=== PATIENT | female | born 1930 | race Caucasian/White ===

== ENCOUNTER 2018-03-02 18:47 | Inpatient (IN) | payer OTHER, MEDICARE ==
--- NOTE | 2018-03-02 19:38 | PDOC ---
History of Present Illness - General Chief Complaint: Injury Stated Complaint: FALL Time Seen by Provider: 03/02/18 19:11 History Source: Patient Exam Limitations: No Limitations - History of Present Illness Initial Comments: 03/02/18 19:38 Ms. Lindsay is a 87 yo F with no pertinent past medical presents to the emergency department BIBA s/p mechanical fall today at 6:45 pm. The fall occurred on [address] nearby and she stated she was walking her dog when it became hyperexcited and pulled on the leash, causing the patient to fall backwards on dirt pavement. She landed on her lower back, but denies head trauma and loss of consciousness. She was unable to get up having 10/10 sharp pain in her right hip posterior and lateral portion. She denies the following: visual changes, headache, chest pain, SOB, abdominal pain, nausea, and vomiting. Pmhx: None Shx: None Meds: None. Multivitamin. Allergies: NKDA Social: smokes 1-2 cigarettes per day, no alcohol or substance abuse use. Past History - Past Medical History Allergies/Adverse Reactions: Allergies Allergy/AdvReac Type Severity Reaction Status Date / Time No Known Allergies Allergy Verified 03/02/18 19:10 Home Medications: Ambulatory Orders Multivitamin [Multiple Vitamins] 1 each PO DAILY 03/02/18 COPD: No DVT: No Thyroid Disease: Yes Other medical history: denies - Suicide/Smoking/Psychosocial Hx Smoking History: Current every day smoker Number of Cigarettes Smoked Daily: 3 Information on smoking cessation initiated: Yes 'Breaking Loose' booklet given: 03/02/18 Hx Alcohol Use: No Drug/Substance Use Hx: No Substance Use Type: None Review of Systems - Review of Systems Able to Perform ROS?: Yes Constitutional: No: Chills, Diaphoresis, Fever HEENTM: No: Blurred Vision, Recent change in vision, Nose Pain, Throat Pain, Mouth Pain Respiratory: No: Cough, Shortness of Breath Cardiac (ROS): No: Chest Pain, Palpitations ABD/GI: No: Constipated, Diarrhea, Rectal Bleeding, Tarry Stools : No: Burning, Dysuria, Hematuria Musculoskeletal: Yes: Back Pain, Joint Pain (right knee. right hip) Integumentary: No: Rash Neurological: No: Headache Psychiatric: No: Stressors Endocrine: No: Unexplained Weight Gain Hematologic/Lymphatic: No: Anemia *Physical Exam - Vital Signs Last Vital Signs Temp Pulse Resp BP Pulse Ox 98.7 F 75 19 146/63 97 03/02/18 19:08 03/02/18 19:08 03/02/18 19:08 03/02/18 19:08 03/02/18 19:08 - Physical Exam General Appearance: Yes: Nourished, Appropriately Dressed HEENT: positive: EOMI, RAFI Neck: negative: Lymphadenopathy (R), Lymphadenopathy (L) Respiratory/Chest: positive: Lungs Clear, Normal Breath Sounds Cardiovascular: positive: Regular Rhythm, Regular Rate, S1, S2, Systolic Murmur (grade 3) Gastrointestinal/Abdominal: positive: Normal Bowel Sounds. negative: Tender Extremity: positive: Other (externall rotated and shortened right leg. unable to internal rotate right leg). negative: Swelling, Calf Tenderness, Erythema Integumentary: positive: Normal Color, Dry, Warm Neurologic: positive: rn mds II-XII NML intact, Fully Oriented, Alert, Normal Mood/ Affect, Normal Response, Motor Strength 5/5 Medical Decision Making - Medical Decision Making 03/02/18 19:57 Ms. Lindsay is a 87 yo F with no pertinent past medical history presenting s/p mechanical fall landing on lateral and posterior right hip with PE showing external rotation with shortened right leg. Based on hx and PE, suspected hip fracture whether posterior displacement vs femoral neck fracture vs trochcanter fracture vs fossa fracture. Initial vitals: Initial Vital Signs Temp Pulse Resp BP Pulse Ox 98.7 F 75 19 146/63 97 03/02/18 19:08 03/02/18 19:08 03/02/18 19:08 03/02/18 19:08 03/02/18 19:08 Work up: Xrays ordered for following: pelvis, lumbo sacral, knee, chest. In addition, EKG , CBC, CMP, and T+S was ordered.
[2018-03-02 20:06] LABS: BASO % 0.7 % (0-2.0); EOS % 3.2 % (0-4.5); HEMATOCRIT 34.5 % (32.4-45.2); HEMOGLOBIN 11.9 GM/dL (10.7-15.3); LYMPH % 23.8 % (8-40); MCH 32.2 pg (25.7-33.7); MCHC 34.6 g/dl (32.0-36.0); MEAN CELL VOLUME 93.2 fl (80-96); MEAN PLT VOLUME 9.1 fl (7.5-11.1); MONO % 8.4 % (3.8-10.2); NEUT % 63.9 % (42.8-82.8); PLATELET COUNT 214 K/MM3 (134-434); RDW 13.5 % (11.6-15.6); WHITE BLOOD COUNT 8.2 K/mm3 (4.0-10.0)
[2018-03-02] MEDS ORDERED: morphine CARPU-JECT 2 MG/1 ML DISP.SYRIN IVPUSH ONE (20:51)
[2018-03-02 21:00] LABS: ALBUMIN 3.5 g/dl (3.4-5.0); ANION GAP 7 (8-16); BILIRUBIN,TOTAL 0.3 mg/dL (0.2-1.0); BLOOD UREA NITROGEN 12 mg/dL (7-18); CHLORIDE 105 mmol/L (98-107); CO2 29 mmol/L (21-32); CREATININE 0.8 mg/dL (0.55-1.02); GLUCOSE,RANDOM 110 mg/dL (74-106); POTASSIUM 4.4 mmol/L (3.5-5.1); SGOT/AST 11 U/L (15-37); SGPT/ALT 12 U/L (12-78); SODIUM 141 mmol/L (136-145); TOT PROT 7.1 g/dl (6.4-8.2)
[2018-03-02 21:01] LABS: ALK PHOS 59 U/L (45-117)
[2018-03-02] MEDS ORDERED: MORPHINE SULFATE 2 MG/ML VIAL ONE (21:11)
--- NOTE | 2018-03-02 21:31 | PDOC ---
Attending Attestation - Resident Resident Name: Jabari Partida - ED Attending Attestation I have performed the following: I have examined & evaluated the patient, The case was reviewed & discussed with the resident, I agree w/resident's findings & plan, Exceptions are as noted - HPI HPI: 03/03/18 00:05 HPI: The patient is an 87 year old female with a past medical history of thyroid disease who presents to the emergency department today BIBA s/p mechanical fall at approximately 6:45 pm today. The patient reports that she was walking her dog when it overpowered her strength on the leash and she fell backward onto her lower back and right hip. She states that she was unable to get up due to pain in her right hip, which she describes as a sharp pain, 10/10 in severity. Denies loss of consciousness, headache, chest pain, abdominal pain, shortness of breath, abdominal pain, visual changes, nausea, vomiting. Allergies: NKA Surgical history: thyroid lesions removed Social history: 3 cigarettes per day PCP: unknown - Physicial Exam PE: 03/03/18 00:04 PE: No acute distress, well appearing, moist mucus membranes, nl conjunctiva; + right lateral parietal abrasion vs dermatitis, nontender, no hematoma or bleeding. neck supple no midline C spine tenderness, unable to move RLE due to right hip pain. Lungs clear, RRR, abdomen soft NTND, warm and well perfused. SINHA x4, no focal neuro deficits. No peripheral edema. normal color for ethnicity. soft compartments, 2+ DP/radialis pulses. Cap refill <2 sec. RLE externally rotated/shortened. Proximal and distal strength 5/5, epic [facility] strength 5/5 - equal and symmetric. Plantar flexion and dorsiflexion 5/5. ROM limited 2/2 pain. Sensation grossly intact to light touch. No calf tenderness. Skin color normal color, warm and well perfused. 03/03/18 00:06 - Medical Decision Making 03/02/18 21:28 A portion of this note was documented by scribe services under my direction. I have reviewed the details of the note, within reason, and agree with the documentation with the following case summary and management plan written by me. Gold 87 YOF with no medical problems, presenting s/p mechanical fall while walking dog that got overexcited. Landed on lower back, ? right hip pain, 10/10 and unable to ambulate. No LOC or head trauma. No prodromal sx. DDx. hip/femur fx, pelvic fx. Contusion, sprain. Hematoma. Compression vertebral fx. plan for L spine XR, hip/femur/knee/ imaging. XR with comminuted IT/fem neck fracture on right, pain control with low dose opioids, and pt consents to regional block (Femoral nerve and fascia iliaca block) for pain control. Pre op labs ordered, understanding risks and benefits , documented. Neuro vascularly intact. Fascia iliaca block on right, pain control, Ortho cs with Dr. Mckeon/[facility]. Dispo: admit for operative management of hip fx 03/02/18 21:30 <Heidy Fournier - Last Filed: 03/03/18 03:04> Procedures - Additional Procedures Progress: 03/03/18 00:09 Procedure: right femoral nerve block Patient was identifed, using 2 criteria, time out performed After explanation of the risks benefits and alternatives [written] consent was obtained - including but not limited to failure of block, pain, swelling, nerve or vessel injury, bleeding, infection, paresthesias, paralysis, seizure, arrhythmia, cardiovascular collapse, disability, . Pre-procedure neurological exam findings: A neurologic exam was conducted including motor and sensory testing of the femoral nerve. There were no deficits. soft compartments. Procedural details: The patient was maintained on continuous cardiac and pulmonary monitoring throughout the procedure. Time out was performed before needle insertion. The area of injection was prepped with chlorhexidine. Sterile technique was observed using: [+] sterile gloves, [+] sterile ultrasound probe cover and/or tegaderm, [+] sterile drape A 20 gauge [quincke tip, ] needle, [3.5] mm in length, was used. Ultrasound guidance with real-time visualization of the needle tip was utilized throughout the procedure using an [[id number]] approach. Images were saved. Approximately 10 mL of [2] % lidocaine without epinephrine and 10 ml of 0.5% bupivicaine was injected near the nerve structure. Local anesthetic was gradually injected in small aliquots of 3-5 mL following negative aspiration. Patient tolerated the procedure with no significant complications including bleeding, pain or neurologic changes during the procedure. There were no signs of local anesthetic toxicity. Following the procedure, the blocked extremity was protected and positioned to prevent injury and was marked with provider initials and time of the block. 03/03/18 03:03 <Heidy Fournier - Last Filed: 03/03/18 03:04> Attestations - Attestations 03/03/18 00:17 Documentation prepared by Elisa Larose, acting as medical staffing coordinator for Heidy Fournier MD. <Elisa Larose - Last Filed: 03/03/18 00:17>
[2018-03-02] MEDS ORDERED: LIDOCAINE HCL 2% (20ML MULTI-DOSE VIAL) NR ONE (21:42)
--- NOTE | 2018-03-02 22:45 | PN ---
Progress Note (short form) - Note Progress Note: chart reviewed plan OR tomorrow if medically optimized will see pt in AM
--- NOTE | 2018-03-02 23:08 | HP ---
CHIEF COMPLAINT:s/p mechanical fall PCP: NONE, used to follow-up with Dr. Morales, but has not seen Dr. morales in several years and no longer is their patient HISTORY OF PRESENT ILLNESS: 87 yr old woman with no significant pmhx bibems s/p mechanical fall. She was walking her terrier (20lbs) when the dog got excited and pulled on the leash. she fell down on to her "bum" and stayed there. She wanted to try to stand but passer-by's told her not to move. she had a sharp pain in her right hip that was worse with movement. has been in her usual state of health. denies LOC and head trauma. denies chest pain, fevers, palpitations, lightheadedness and dizziness, no history of falls, visual changes, dizziness, lightheadedness. ER course was notable for: (1)consult ortho (2) xrays (3) Recent Travel: none PAST MEDICAL HISTORY: none, no previous diagnosis of HTN, DM, cancers PAST SURGICAL HISTORY: no previous surgical hx Social History: , lives alone with her dog. indpendent with ADLS. has neice and nephew who she keeps in touch with. Smoking: current everday smoker 1-2 cigarrettes a day Alcohol:never Drugs: never Family History: NC Allergies No Known Allergies Allergy (Verified 03/02/18 19:10) HOME MEDICATIONS: Home Medications Medication Instructions Recorded Multivitamin [Multiple Vitamins] 1 each PO DAILY 03/02/18 REVIEW OF SYSTEMS CONSTITUTIONAL: Absent: fever, chills, diaphoresis, generalized weakness, malaise, loss of appetite, weight change HEENT: Absent: rhinorrhea, nasal congestion, throat pain, throat swelling, difficulty swallowing, mouth swelling, ear pain, eye pain, visual changes CARDIOVASCULAR: Absent: chest pain, syncope, palpitations, irregular heart rate, lightheadedness , peripheral edema RESPIRATORY: Absent: cough, shortness of breath, dyspnea with exertion, orthopnea, wheezing, stridor, hemoptysis GASTROINTESTINAL: Absent: abdominal pain, abdominal distension, nausea, vomiting, diarrhea, constipation, melena, hematochezia GENITOURINARY: Absent: dysuria, frequency, urgency, hesitancy, hematuria, flank pain, genital pain MUSCULOSKELETAL: Absent: myalgia, arthralgia, joint swelling, back pain, neck pain SKIN: Absent: rash, itching, pallor HEMATOLOGIC/IMMUNOLOGIC: Absent: easy bleeding, easy bruising, lymphadenopathy, frequent infections ENDOCRINE: Absent: unexplained weight gain, unexplained weight loss, heat intolerance, cold intolerance NEUROLOGIC: Absent: headache, focal weakness or paresthesias, dizziness, unsteady gait, seizure, mental status changes, bladder or bowel incontinence PSYCHIATRIC: Absent: anxiety, depression, suicidal or homicidal ideation, hallucinations. PHYSICAL EXAMINATION Vital Signs - 24 hr 03/02/18 03/02/18 19:08 22:00 Temperature 98.7 F Pulse Rate 75 Pulse Rate [ 83 Left] Respiratory 19 16 Rate Blood Pressure 146/63 Blood Pressure 126/65 [Right Arm] O2 Sat by Pulse 97 94 L Oximetry (%) GENERAL: Awake, alert, and fully oriented, in no acute distress. HEAD: Normal with no signs of trauma. EYES: Pupils equal, round and reactive to light, extraocular movements intact, sclera anicteric, conjunctiva clear. No lid lag. EARS, NOSE, THROAT: Ears normal, nares patent, oropharynx clear without exudates. Moist mucous membranes. NECK: Normal range of motion, supple without lymphadenopathy, JVD, or masses. LUNGS: Breath sounds equal, clear to auscultation bilaterally. No wheezes, and no crackles. No accessory muscle use. HEART: Regular rate and rhythm, normal S1 and S2 with soft systolic murmur in RUSB, rub or gallop. ABDOMEN: Soft, nontender, not distended, normoactive bowel sounds, no guarding, no rebound, no masses. No hepatomegaly or splenomegaly. MUSCULOSKELETAL: Normal range of motion at all joints except for right hip due to pain. No bony deformities or tenderness. No CVA tenderness. UPPER EXTREMITIES: 2+ radial pulses, warm, well-perfused. No cyanosis. No clubbing. No peripheral edema.left posterior lower arm with excorations from fall, no active bleeding. LOWER EXTREMITIES: 2+ DP pulses, warm, well-perfused. No calf tenderness. No peripheral edema. right hip is externally rotated. sensation is intact throughout, able to dorsi and planter flex at ankle. NEUROLOGICAL: Cranial nerves II-XII intact. Normal speech. facial symmetry. sensation intact and equal b/l throughout. 5/5 handgrip/shoulder/elbow extension and flexion. DTR intact in ue. right hip with ttp. left hip wnl for strength, sensation and movement. PSYCHIATRIC: Cooperative. Good eye contact. Appropriate mood and affect. SKIN: Warm, dry, normal turgor, no rashes noted, normal capillary refill. Laboratory Results - last 24 hr 03/02/18 03/02/18 19:45 19:45 WBC 8.2 RBC 3.70 Hgb 11.9 Hct 34.5 MCV 93.2 MCH 32.2 MCHC 34.6 RDW 13.5 Plt Count 214 MPV 9.1 Absolute Neuts (auto) 5.2 Neutrophils % 63.9 Lymphocytes % 23.8 Monocytes % 8.4 Eosinophils % 3.2 Basophils % 0.7 Nucleated RBC % 0 Sodium 141 Potassium 4.4 Chloride 105 Carbon Dioxide 29 Anion Gap 7 L BUN 12 Creatinine 0.8 Creat Clearance w eGFR > 60 Random Glucose 110 H Calcium 9.0 Total Bilirubin 0.3 AST 11 L ALT 12 Alkaline Phosphatase 59 Total Protein 7.1 Albumin 3.5 ASSESSMENT/PLAN: 87 yr old man with no significant medical history bibems s/p mechanical fall. #Communuted right femoral fracture - ortho to take pt to the OR tomorrow - continuous bedrest until surgically cleared for PT - coags/type&creen completed in ED - pt received nerve block in the ED and it seems to be controlling the pain, may need to start IV morphine if nerve block is wanes, however pt had mild desaturation on morphine and required nasal cannula 2Lpm to maintin o2 >88% - await final read off all rays. #smoking cessation - nicotine patch 7mg TD - encourage smoking cessation DVT; lovanox qd diet - npo pending surgery, then vegetarian diet, pt does not eat meat. Code status: full code, HCP is her nephew, form signed and placed in chart. Visit type - Emergency Visit Emergency Visit: Yes ED Registration Date: 03/02/18 Care time: The patient presented to the Emergency Department on the above date and was hospitalized for further evaluation of their emergent condition. - New Patient This patient is new to me today: Yes Date on this admission: 03/02/18 - Critical Care Critical Care patient: No Hospitalist Screening - Colonoscopy Questionnaire Colonoscopy Questionnaire: Colonoscopy Questionnaire - Patient: 50 - 75 years old and never had a screening colonoscopy: Unknown History of colon or rectal polyps, or CA: Unknown History of IBD, Crohn's disease or UC: Unknown History of abdominal radiation therapy as a child: Unknown - Relative: 1 with colon or rectal CA, or polyps at age 60 or younger: Unknown Colon or rectal CA diagnosed at age 45 or younger: Unknown Multiple relatives with colon or rectal CA: Unknown - Outcome: Screening Result: Negative Screen
[2018-03-02] MEDS ORDERED: ENOXAPARIN NA (PORCINE) 40 MG/0.4 ML DISP.SYRIN SQ ONE (23:31)
--- NOTE | 2018-03-02 23:32 | PN ---
Teaching Attending Note Name of Resident: Yaquelin Acuña ATTENDING PHYSICIAN STATEMENT I saw and evaluated the patient. I reviewed the resident's note and discussed the case with the resident. I agree with the resident's findings and plan as documented. SUBJECTIVE: Patient is an 87 year old woman with history of thyroid disease who presents to the ER after a mechanical fall today at 6:45 pm. The fall occurred on [address] [place] and she stated she was walking her dog when it became hyperexcited and pulled on the leash, causing the patient to fall backwards on dirt pavement. She landed on her lower back, but denies head trauma and loss of consciousness. She was unable to get up having 10/10 sharp pain in her right hip posterior and lateral portion. She denies the following: visual changes, headache, chest pain, SOB, abdominal pain, nausea, and vomiting. She is a smoker. Does not eat meat - only fruits and vegetables. Was started on O2 nasal canula because of mild desaturation after morphine therapy. OBJECTIVE: Alert and in no acute distress. Vital Signs Period Temp Pulse Resp BP Sys/Graves Pulse Ox Last 24 Hr 98.7 F 75-83 16-19 126-146/63-65 94-97 HEENT: No Jaundice, eye redness or discharge, PERRLA, EOMI. Normocephalic, atraumatic. External ears are normal and hearing is impaired. No nasal discharge. Neck: Supple, nontender. No palpable adenopathy or thyromegaly. No JVD Chest: Good effort. Clear to auscultation and percussion. Heart: Regular. No S3, rub or murmur Abdomen: Not distended, soft, nontender and no HSM. No rebound or guarding. Normoactive bowel sounds. Ext: Peripheral pulses intact. No leg edema. Externally rotated right leg which is also shorter than the left leg. Skin: Warm and dry. No petechiae, rash or ecchymosis. Neuro: Alert. Oriented x3. CN 2-12 grossly intact. Sensation grossly intact in all four extremities and DTR are symmetric. Current Medications Generic Name Dose Route Start Last Admin Trade Name Freq PRN Reason Stop Dose Admin Enoxaparin Sodium 40 mg 03/02/18 22:00 Lovenox - SQ DAILY AIDEE Multivitamins/Minerals/Vitamin C 1 tab 03/03/18 10:00 Tab-A-Vit - PO DAILY [facility] Home Medications Medication Instructions Recorded Multivitamin [Multiple Vitamins] 1 each PO DAILY 03/02/18 Abnormal Lab Results 03/02/18 19:45 Anion Gap 7 L Random Glucose 110 H AST 11 L ASSESSMENT AND PLAN: 1. Right Femoral Neck Fracture - Had a mechanical fall. Patient being kept NPO for possible surgery tomorrow. Morphine IV for pain control. Check TSH for history of thyroid disease. 2. Tobacco Use We will provide patient all the necessary assistance to facilitate smoking cessation and prescribe Nicotine patch. 3. DVT prophylaxis - Lovenox 40 mg SQ q 24 hours. 4. Advance directives - Full code
[2018-03-02] MEDS: ENOXAPARIN NA (PORCINE) 40 MG/0.4 ML DISP.SYRIN SQ SCH (23:35)
[2018-03-03 00:56] LABS: INR 1.03 (0.83-1.09); PROTHROMBIN TIME (PATIENT) 11.6 SEC (9.7-13.0)
[2018-03-03 00:59] LABS: ACTIVATED PTT 31.5 SECONDS (25.2-36.5)
[2018-03-03 01:32] VITALS: BMI 24.0
--- NOTE | 2018-03-03 09:07 | EKG ---
Test Reason : Blood Pressure : / mmHG Vent. Rate : 075 BPM Atrial Rate : 075 BPM P-R Int : 170 ms QRS Dur : 076 ms QT Int : 420 ms P-R-T Axes : 072 023 055 degrees QTc Int : 469 ms POOR DATA QUALITY, INTERPRETATION MAY BE ADVERSELY AFFECTED NORMAL SINUS RHYTHM NORMAL ECG NO PREVIOUS ECGS AVAILABLE Confirmed by BHARAT GONCALVES MD ([id number]) on 03/03/2018 9:07:24 AM Referred By: Confirmed By:BHARAT GONCALVES MD
--- NOTE | 2018-03-03 09:20 | CONS ---
DATE OF CONSULTATION: 03/03/2018 CHIEF COMPLAINT: Right hip pain. HISTORY OF PRESENT ILLNESS: This is an 87-year-old female who got pulled over by her dog while she was walking it. She fell on to the right side of her hip and was unable to move afterwards. She was brought in by EMS to the ER where she was found to have a right peritrochanteric hip fracture. Patient denies pain elsewhere. No radiating pain, numbness or tingling. PAST MEDICAL HISTORY: Significant for diabetes, hypertension, cancer. PAST SURGICAL HISTORY: Denies. SOCIAL HISTORY: Denies alcohol or drugs. Does smoke about 2 cigarettes a day. FAMILY HISTORY: Denies. ALLERGIES: Denies. MEDICATIONS: Multivitamin. REVIEW OF SYMPTOMS: Negative for any fever, chills or weakness, no runny nose, nasal congestion or throat pain, no chest pain, palpitations or lightheadedness, no abdominal pain, distention or nausea, no urinary incontinence, dysuria or frequency. PHYSICAL EXAMINATION:General: This is an elderly female in no acute distress. She is alert and oriented x3. She is seen lying on the hospital bed. Extremities: Examination of the right lower extremity demonstrates shortening and external rotation. There is pain with any range of motion of the hip. The knee is nontender. The ankle is nontender. Distally sensation is intact to light touch. DP pulse 2+. EHL, FHL, tibialis anterior, gastroc and soleus are intact. IMAGING: Radiographs reviewed of the right hip demonstrating a highly comminuted 4-part intertrochanteric hip fracture with displacement. ASSESSMENT: Right peritrochanteric hip fracture. PLAN: I reviewed today's findings with the patient. I discussed that she has a highly comminuted right hip fracture. We discussed treatment options including nonoperative care which would involve prolonged bedrest. We reviewed operative care which is recommended here. This allows for early mobilization. We reviewed the operative procedure in detail. I reviewed operative risks in detail including bleeding, infection, neurovascular injury, need for further surgery, postoperative pain and stiffness, nonunion, malunion, hardware failure or cutout. We discussed medical risks such as heart attack, stroke, DVT, PE and . I discussed that she must immediately stop all smoking as this can impede fracture healing. We discussed the use of perioperative antibiotic and DVT prophylaxis. I addressed all the patient's questions and concerns. She voiced understanding and is electing to proceed. She will be brought to the OR later today. She will be maintained n.p.o. with IV fluid until then. SANDER EDOUARD M.D. [id number]
[2018-03-03] MEDS: ENOXAPARIN NA (PORCINE) 40 MG/0.4 ML DISP.SYRIN SQ SCH (09:57)
[2018-03-03] MEDS ORDERED: MULTIVITAMINS (DAILY MVI) TABLET (FP) PO SCH (10:00)
[2018-03-03] MEDS ORDERED: NICOTINE 7 MG/24 HOURS TOPICAL PATCH TD SCH (10:00)
[2018-03-03] MEDS ORDERED: MORPHINE SULFATE 2 MG/ML VIAL IVPUSH PRN (10:09)
--- NOTE | 2018-03-03 10:12 | OP ---
Operative Note - Note: Operative Date: 03/03/18 Pre-Operative Diagnosis: right hip intertrochanteric fracture Operation: right hip intramedullary nail Implants: bernarda gamma 3 Post-Operative Diagnosis: Same as Pre-op Surgeon: Darryn Mansfield Anesthesiologist/PETROLEUM GEOLOGIST: Gage Torres Anesthesia: Spinal Estimated Blood Loss (mls): 150 Operative Report Dictated: Yes
[2018-03-03] MEDS ORDERED: ONDANSETRON 4 MG/2 ML VIAL IVPUSH PRN ×2 (10:13→12:40)
[2018-03-03] MEDS ORDERED: MIDAZOLAM HCL 2 MG/2 ML SINGLE DOSE VIAL ONE ×2 (10:29→11:09)
[2018-03-03] MEDS ORDERED: PHENYLEPHRINE HCL 10 MG/1 ML SINGLE DOSE VIAL ONE (11:02)
[2018-03-03] MEDS ORDERED: ceFAZolin SODIUM 1 GM VIAL ONE ×2 (11:06→18:01)
[2018-03-03] MEDS ORDERED: ceFAZolin SODIUM 1 GM VIAL IVPB ONE (11:07)
[2018-03-03] MEDS ORDERED: TRANEXAMIC ACID 1000 MG/10 ML VIAL ONE (12:13)
[2018-03-03] MEDS ORDERED: ACETAMINOPHEN 325 MG TABLET (FP) PO PRN (12:40)
[2018-03-03 13:14] LABS: BASO % 0.2 % (0-2.0); EOS % 0.1 % (0-4.5); HEMATOCRIT 27.6 % (32.4-45.2); HEMOGLOBIN 9.3 GM/dL (10.7-15.3); LYMPH % 12.4 % (8-40); MCHC 33.8 g/dl (32.0-36.0); MEAN CELL VOLUME 94.5 fl (80-96); MEAN PLT VOLUME 8.7 fl (7.5-11.1); MONO % 7.7 % (3.8-10.2); NEUT % 79.6 % (42.8-82.8); PLATELET COUNT 199 K/MM3 (134-434); RBC 2.92 M/mm3 (3.60-5.2); RDW 13.9 % (11.6-15.6); WHITE BLOOD COUNT 11.9 K/mm3 (4.0-10.0)
[2018-03-03] MEDS: DOCUSATE SODIUM 100 MG CAPSULE (FP) PO SCH ×2 (14:04→21:28)
--- NOTE | 2018-03-03 17:06 | PN ---
Physical Exam: SUBJECTIVE: Patient seen and examined Patient is lying in bed, NAD. s/p surgery OBJECTIVE: Vital Signs Period Temp Pulse Resp BP Sys/Graves Pulse Ox Last 24 Hr 98.0 F-98.7 F 75-91 14-20 90-147/40-81 94-100 GENERAL: The patient is awake, alert, and fully oriented, in no acute distress. HEAD: Normal with no signs of trauma. EYES: PERRL, extraocular movements intact, sclera anicteric, conjunctiva clear. No ptosis. ENT: Ears normal, nares patent, oropharynx clear without exudates, moist mucous membranes. NECK: Trachea midline, full range of motion, supple. LUNGS: Breath sounds equal, clear to auscultation bilaterally, no wheezes, no crackles, no accessory muscle use. HEART: Regular rate and rhythm, S1, S2 without murmur, rub or gallop. ABDOMEN: Soft, nontender, nondistended, normoactive bowel sounds, no guarding, no rebound, no hepatosplenomegaly, no masses. EXTREMITIES: 2+ pulses, warm, well-perfused, no edema, s/p surgery pOD#0 NEUROLOGICAL: Cranial nerves II through XII grossly intact. Normal speech, gait not observed. PSYCH: Normal mood, normal affect. SKIN: Warm, dry, normal turgor, no rashes or lesions noted Laboratory Results - last 24 hr 03/02/18 03/02/18 03/02/18 13:00 19:45 19:45 WBC 8.2 RBC 3.70 Hgb 11.9 Hct 34.5 MCV 93.2 MCH 32.2 MCHC 34.6 RDW 13.5 Plt Count 214 MPV 9.1 Absolute Neuts (auto) 5.2 Neutrophils % 63.9 Lymphocytes % 23.8 Monocytes % 8.4 Eosinophils % 3.2 Basophils % 0.7 Nucleated RBC % 0 PT with INR INR PTT (Actin FS) Sodium 141 Potassium 4.4 Chloride 105 Carbon Dioxide 29 Anion Gap 7 L BUN 12 Creatinine 0.8 Creat Clearance w eGFR > 60 Random Glucose 110 H Calcium 9.0 Total Bilirubin 0.3 AST 11 L ALT 12 Alkaline Phosphatase 59 Total Protein 7.1 Albumin 3.5 TSH 0.72 Blood Type Antibody Screen 03/02/18 03/03/18 03/03/18 22:31 00:05 00:13 WBC RBC Hgb Hct MCV MCH MCHC RDW Plt Count MPV Absolute Neuts (auto) Neutrophils % Lymphocytes % Monocytes % Eosinophils % Basophils % Nucleated RBC % PT with INR 11.60 INR 1.03 PTT (Actin FS) 31.5 Sodium Potassium Chloride Carbon Dioxide Anion Gap BUN Creatinine Creat Clearance w eGFR Random Glucose Calcium Total Bilirubin AST ALT Alkaline Phosphatase Total Protein Albumin TSH Blood Type A POSITIVE A POSITIVE Antibody Screen Negative 03/03/18 13:00 WBC 11.9 H RBC 2.92 L Hgb 9.3 L Hct 27.6 L D MCV 94.5 MCH 32.0 MCHC 33.8 RDW 13.9 Plt Count 199 MPV 8.7 Absolute Neuts (auto) 9.5 Neutrophils % 79.6 D Lymphocytes % 12.4 D Monocytes % 7.7 Eosinophils % 0.1 D Basophils % 0.2 Nucleated RBC % 0 PT with INR INR PTT (Actin FS) Sodium Potassium Chloride Carbon Dioxide Anion Gap BUN Creatinine Creat Clearance w eGFR Random Glucose Calcium Total Bilirubin AST ALT Alkaline Phosphatase Total Protein Albumin TSH Blood Type Antibody Screen Active Medications Generic Name Dose Route Start Last Admin Trade Name Freq PRN Reason Stop Dose Admin Acetaminophen 650 mg 03/03/18 12:40 Tylenol - PO Q6H PRN PAIN Calcium Carbonate/Cholecalciferol 1 tab 03/03/18 22:00 Os-Julian 500+D - PO BID AIDEE Docusate Sodium 100 mg 03/03/18 14:00 03/03/18 14:04 Colace - PO 100 mg TID AIDEE Administration Enoxaparin Sodium 40 mg 03/04/18 10:00 Lovenox - SQ DAILY REPLACED BY [facility] Ferrous Sulfate 325 mg 03/03/18 22:00 Feosol - PO BID REPLACED BY [facility] Cefazolin Sodium 1 gm/ 50 mls @ 100 mls/hr 03/03/18 18:00 Dextrose IVPB 03/04/18 17:59 Q8H-IV AIDEE Multivitamins/Minerals/Vitamin C 1 tab 03/04/18 10:00 Tab-A-Vit - PO DAILY AIDEE Nicotine 7 mg 03/04/18 10:00 Nicoderm Patch - TD DAILY AIDEE Ondansetron HCl 4 mg 03/03/18 12:40 Zofran Injection IVPUSH Q6H PRN NAUSEA AND/OR VOMITING Oxycodone/Acetaminophen 1 combo 03/03/18 12:40 03/03/18 14:04 Percocet 5/325 - PO 1 combo Q6H PRN Administration PAIN LEVEL 1-5 XRAY: Right femur: Fall. Pain. Limited views of the right femur reveal a comminuted intertrochanteric fracture with no sign of a femoral head dislocation. There are buttock granulomata and vascular calcifications. There may have been old trauma by the inferior pubic ramus. Correlation recommended Impression: Acute proximal right femoral fracture. No sign of femoral head dislocation. ASSESSMENT/PLAN: 87 yr old man with no significant medical history s/p mechanical fall. while walking the dog. She was walking her terrier (20lbs) when the dog got excited and pulled on the leash. she fell down and fractured right hip interochantric hip fracture. # POD day #0 Acute Right hip intertrochanteric fracture Dr. Mansfield ortho #smoking cessation nicotine patch 7mg TD, smoking cessation DVT; lovanox Code status: full code, HCP is her nephew, form signed and placed in chart. Visit type - Emergency Visit Emergency Visit: Yes ED Registration Date: 03/02/18 Care time: The patient presented to the Emergency Department on the above date and was hospitalized for further evaluation of their emergent condition. - New Patient This patient is new to me today: Yes Date on this admission: 03/04/18 - Critical Care Critical Care patient: No - Discharge Referral Referred to [facility] Med [facility] No
[2018-03-03] MEDS ORDERED: DEXTROSE 5%-WATER - 50 ML IVPB ONE (18:01)
[2018-03-03] MEDS: CEFAZOLIN 1 GM in DEXTROSE 5%-WATER - 50 ML IVPB SCH (18:06)
[2018-03-03] MEDS: CALCIUM 500MG/VIT-D 200 UNITS COMBO TABLET (FP) PO SCH (21:28)
[2018-03-03] MEDS: FERROUS SO4 325 MG TABLET (FP) PO SCH (21:28)
[2018-03-04] MEDS ORDERED: ceFAZolin SODIUM 1 GM VIAL ONE ×2 (02:13→09:48)
[2018-03-04] MEDS ORDERED: DEXTROSE 5%-WATER - 50 ML IVPB ONE ×2 (02:14→09:48)
[2018-03-04] MEDS: CEFAZOLIN 1 GM in DEXTROSE 5%-WATER - 50 ML IVPB SCH ×2 (02:18→09:55)
[2018-03-04] MEDS: DOCUSATE SODIUM 100 MG CAPSULE (FP) PO SCH ×3 (05:08→21:36)
[2018-03-04] MEDS ORDERED: PT OWN MED DRAWER 7, Y5N ONE (09:48)
[2018-03-04] MEDS: ENOXAPARIN NA (PORCINE) 40 MG/0.4 ML DISP.SYRIN SQ SCH (09:56)
[2018-03-04] MEDS: FERROUS SO4 325 MG TABLET (FP) PO SCH ×2 (09:56→21:35)
[2018-03-04] MEDS: MULTIVITAMINS (DAILY MVI) TABLET (FP) PO SCH (09:57)
[2018-03-04] MEDS: NICOTINE 7 MG/24 HOURS TOPICAL PATCH TD SCH ×2 (09:57→10:04)
[2018-03-04] MEDS: CALCIUM 500MG/VIT-D 200 UNITS COMBO TABLET (FP) PO SCH ×2 (09:57→21:35)
--- NOTE | 2018-03-04 09:57 | PN ---
Physical Exam: SUBJECTIVE: Patient seen and examined c/o right hip pain. percocet is not enough for pain control. no fevers, denies chest pain, sob, headache, abdominal pain. breathing comfortably on room air. eating well, no BM since admission OBJECTIVE: Vital Signs Period Temp Pulse Resp BP Sys/Graves Pulse Ox Last 24 Hr 97.6 F-98.3 F 87-94 14-20 90-116/40-66 98-100 GENERAL: The patient is awake, alert, and fully oriented, in no acute distress. EYES: PERRL, extraocular movements intact, sclera anicteric, conjunctiva clear. No ptosis. ENT: oropharynx clear without exudates, dry mucous membranes. NECK: Trachea midline, full range of motion, supple. LUNGS: Breath sounds equal, clear to auscultation bilaterally, no wheezes, HEART: Regular rate and rhythm, S1, S2 with +murmur. ABDOMEN: Soft, nontender, nondistended, normoactive bowel sounds, no guarding EXTREMITIES: 2+ dp and radial pulses b/l, warm, well-perfused, no edema. right hip with dressing in tact at hip and at knee, no discharge through dressing and no surrounding erythema or bruising noted. does not want to move right hip or knee due to pain. able to move ankle and wiggle toes, sensation intact throughout leg. left hip rom wnl. NEUROLOGICAL: Cranial nerves II through XII grossly intact. Normal speech, facial symmetry. Laboratory Results - last 24 hr 03/02/18 03/03/18 13:00 13:00 WBC 11.9 H RBC 2.92 L Hgb 9.3 L Hct 27.6 L D MCV 94.5 MCH 32.0 MCHC 33.8 RDW 13.9 Plt Count 199 MPV 8.7 Absolute Neuts (auto) 9.5 Neutrophils % 79.6 D Lymphocytes % 12.4 D Monocytes % 7.7 Eosinophils % 0.1 D Basophils % 0.2 Nucleated RBC % 0 TSH 0.72 Active Medications Generic Name Dose Route Start Last Admin Trade Name Freq PRN Reason Stop Dose Admin Acetaminophen 650 mg 03/03/18 12:40 Tylenol - PO Q6H PRN PAIN Calcium Carbonate/Cholecalciferol 1 tab 03/03/18 22:00 03/03/18 21:28 Os-Julian 500+D - PO 1 tab BID AIDEE Administration Docusate Sodium 100 mg 03/03/18 14:00 03/04/18 05:08 Colace - PO 100 mg TID AIDEE Administration Enoxaparin Sodium 40 mg 03/04/18 10:00 Lovenox - SQ DAILY AIDEE Ferrous Sulfate 325 mg 03/03/18 22:00 03/03/18 21:28 Feosol - PO 325 mg BID AIDEE Administration Cefazolin Sodium 1 gm/ 50 mls @ 100 mls/hr 03/03/18 18:00 03/04/18 02:18 Dextrose IVPB 03/04/18 17:59 100 mls/hr Q8H-IV AIDEE Administration Multivitamins/Minerals/Vitamin C 1 tab 03/04/18 10:00 Tab-A-Vit - PO DAILY AIDEE Nicotine 7 mg 03/04/18 10:00 Nicoderm Patch - TD DAILY AIDEE Ondansetron HCl 4 mg 03/03/18 12:40 Zofran Injection IVPUSH Q6H PRN NAUSEA AND/OR VOMITING Oxycodone/Acetaminophen 1 combo 03/03/18 12:40 03/04/18 07:05 Percocet 5/325 - PO 1 combo Q6H PRN Administration PAIN LEVEL 1-5 ASSESSMENT/PLAN: 87 yr old woman with no significant medical history bibems s/p mechanical fall pod 1 from orif #Communuted right femoral fracture - POD #1 right hip IM nail placement - OOB to chair, PT therapy - pain control with percocet 1 tab q4hr(decreased the frequency) and added morphine 1mg ivpush q6h prior to ambulation for better pain control, if not used , de-escalate pain meds tomorrow - will need rehab, discussed with case management for placement #smoking cessation - nicotine patch 7mg TD - encourage smoking cessation #leucocytosis and anemia - post-op, likely due to blood loss and reactive leucocytosis. pt receiving ancef for periop coverage. will trend for resolution - po iron supplementation started as per ortho DVT; lovanox qd diet - vegetarian diet, pt does not eat meat. Code status: full code, HCP is her nephew, form signed and placed in chart. Dispo: pending rehab placement Visit type - Emergency Visit Emergency Visit: No - New Patient This patient is new to me today: No - Critical Care Critical Care patient: No
--- NOTE | 2018-03-04 09:57 | PN ---
Progress Note (short form) - Note Progress Note: Post op day#1.S/p Right hip orif under spinal anesthesia uneventful.Patient stable.No any anesthesia related problem.Patient dc from the anesthesia care.
[2018-03-04] MEDS ORDERED: MORPHINE SULFATE 2 MG/ML VIAL IVPUSH PRN (12:15)
[2018-03-04] MEDS ORDERED: ACETAMINOPHEN 325 MG TABLET (FP) PO PRN (12:27)
--- NOTE | 2018-03-04 12:32 | PN ---
Progress Note (short form) - Note Progress Note: Pt lying comf in bed. Pain controlled. Last Vital Signs Temp Pulse Resp BP Pulse Ox 97.6 F 94 H 20 116/58 94 L 03/04/18 05:05 03/04/18 05:05 03/04/18 09:00 03/04/18 05:05 03/04/18 09:00 RLE dressing cdi calves soft NT ehl fhl ta g s intact sens int to LT 2+ dp Abnormal Lab Results 03/03/18 13:00 WBC 11.9 H RBC 2.92 L Hgb 9.3 L Hct 27.6 L D a/p: pod 1 r hip IM nail -pain control w minimized narcotics -dvt proph -PT -oob->chair -f/u HCT and started iron supplement yesterday for post op anemia
[2018-03-04] MEDS: oxyCODONE HCL 5 MG TABLET PO PRN (12:58)
[2018-03-04] MEDS ORDERED: POLYETHYLENE GLYCOL 3350 119 GM BTL PO ONE (14:00)
--- NOTE | 2018-03-04 20:14 | PN ---
Teaching Attending Note Name of Resident: Yaquelin Acuña ATTENDING PHYSICIAN STATEMENT I saw and evaluated the patient. I reviewed the resident's note and discussed the case with the resident. I agree with the resident's findings and plan as documented. SUBJECTIVE: Patient is comfortable with no acute distress. OBJECTIVE: Vital Signs Temperature 98.5 F 03/04/18 19:57 Pulse Rate 92 H 03/04/18 19:57 Respiratory Rate 20 03/04/18 19:57 Blood Pressure 107/49 03/04/18 19:57 O2 Sat by Pulse Oximetry (%) 96 03/04/18 20:02 CBCD WBC 11.9 K/mm3 (4.0-10.0) H 03/03/18 13:00 RBC 2.92 M/mm3 (3.60-5.2) L 03/03/18 13:00 Hgb 9.3 GM/dL (10.7-15.3) L 03/03/18 13:00 Hct 27.6 % (32.4-45.2) L D 03/03/18 13:00 MCV 94.5 fl (80-96) 03/03/18 13:00 MCHC 33.8 g/dl (32.0-36.0) 03/03/18 13:00 RDW 13.9 % (11.6-15.6) 03/03/18 13:00 Plt Count 199 K/MM3 (134-434) 03/03/18 13:00 MPV 8.7 fl (7.5-11.1) 03/03/18 13:00 CMP Sodium 141 mmol/L (136-145) 03/02/18 19:45 Potassium 4.4 mmol/L (3.5-5.1) 03/02/18 19:45 Chloride 105 mmol/L (98-107) 03/02/18 19:45 Carbon Dioxide 29 mmol/L (21-32) 03/02/18 19:45 Anion Gap 7 (8-16) L 03/02/18 19:45 BUN 12 mg/dL (7-18) 03/02/18 19:45 Creatinine 0.8 mg/dL (0.55-1.02) 03/02/18 19:45 Creat Clearance w eGFR > 60 (>60) 03/02/18 19:45 Random Glucose 110 mg/dL (74-106) H 03/02/18 19:45 Calcium 9.0 mg/dL (8.5-10.1) 03/02/18 19:45 Total Bilirubin 0.3 mg/dL (0.2-1.0) 03/02/18 19:45 AST 11 U/L (15-37) L 03/02/18 19:45 ALT 12 U/L (12-78) 03/02/18 19:45 Alkaline Phosphatase 59 U/L (45-117) 03/02/18 19:45 Total Protein 7.1 g/dl (6.4-8.2) 03/02/18 19:45 Albumin 3.5 g/dl (3.4-5.0) 03/02/18 19:45 Current Medications Generic Name Dose Route Start Last Admin Trade Name Freq PRN Reason Stop Dose Admin Acetaminophen 650 mg 03/03/18 12:40 Tylenol - PO Q6H PRN PAIN Acetaminophen 325 mg 03/04/18 12:27 03/04/18 13:08 Tylenol - PO 03/07/18 12:26 325 mg Q4H PRN Administration PAIN 6-10 Calcium Carbonate/Cholecalciferol 1 tab 03/03/18 22:00 03/04/18 09:57 Os-Julian 500+D - PO 1 tab BID AIDEE Administration Docusate Sodium 100 mg 03/03/18 14:00 03/04/18 13:36 Colace - PO 100 mg TID AIDEE Administration Enoxaparin Sodium 40 mg 03/04/18 10:00 03/04/18 09:56 Lovenox - SQ 40 mg DAILY AIDEE Administration Ferrous Sulfate 325 mg 03/03/18 22:00 03/04/18 09:56 Feosol - PO 325 mg BID AIDEE Administration Morphine Sulfate 1 mg 03/04/18 12:15 Morphine Sulfate IVPUSH Q6H PRN PAIN LEVEL 7 - 10 Multivitamins/Minerals/Vitamin C 1 tab 03/04/18 10:00 03/04/18 09:57 Tab-A-Vit - PO 1 tab DAILY AIDEE Administration Nicotine 7 mg 03/04/18 10:00 03/04/18 10:04 Nicoderm Patch - TD Not Given DAILY [facility] Ondansetron HCl 4 mg 03/03/18 12:40 Zofran Injection IVPUSH Q6H PRN NAUSEA AND/OR VOMITING Oxycodone HCl 5 mg 03/04/18 12:27 03/04/18 12:58 Roxicodone - PO 5 mg Q4H PRN Administration PAIN 6-10 Home Medications Medication Instructions Recorded Multivitamin [Multiple Vitamins] 1 each PO DAILY 03/02/18 PE: per resident's note ASSESSMENT AND PLAN: Patient is a 87 yr old man with no significant medical history s/p mechanical fall. while walking the dog. She was walking her terrier (20lbs) when the dog got excited and pulled on the leash. she fell down and fractured right hip interochantric hip fracture. # POD day #1 Acute Right hip intertrochanteric fracture. ortho right hip IM nail placement #smoking cessation nicotine patch 7mg TD ; smoking cessation advised #leucocytosis and anemia - post-op, likely due to blood loss and reactive leucocytosis. s/p on ancef perioperatively .continue iron supplementation per ortho DVT; lovanox qd diet - vegetarian diet, pt does not eat meat. Code status: full code, HCP is her nephew, form signed and placed in chart. Dispo: pending rehab placement
[2018-03-05] MEDS: DOCUSATE SODIUM 100 MG CAPSULE (FP) PO SCH ×3 (05:26→21:02)
--- NOTE | 2018-03-05 11:05 | OP ---
DATE OF OPERATION: 03/03/2018 PREOPERATIVE DIAGNOSIS: Right hip intertrochanteric fracture. POSTOPERATIVE DIAGNOSIS: Right hip intertrochanteric fracture. PROCEDURE: Right hip intramedullary nail. SURGEON: Darryn Mansfield MD ANESTHESIA: Spinal. POSTOPERATIVE CONDITION: Stable. COMPLICATIONS: None. IMPLANTS: Abraham Gamma-3 System, 11 x 360-mm nail with 95-mm proximal lag screw, two 5-mm distal locking screws, 42.5 and 45 mm long. BLOOD LOSS: 100 to 150 mL. INDICATIONS: This is a pleasant 87-year-old female who suffered a fall when walking her dog. She was found to have a comminuted intertrochanteric hip fracture. Treatment options, including nonoperative versus operative management, were reviewed. Operative treatment management was suggested strongly in order to allow for early mobilization. This would also help to minimize complications associated with surgery. Operative risks were reviewed in detail, including bleeding, infection, neurovascular injury, need for further surgery, postoperative pain and stiffness, nonunion, malunion, hardware failure and cutout. We discussed medical risks, such as heart attack, stroke, DVT, PE, or . We discussed the use of perioperative antibiotic and DVT prophylaxis. I addressed all of the patient's questions and concerns. She voiced understanding and elected to proceed. PROCEDURE: The patient was brought to the operating room, where spinal anesthesia was administered. She was placed on the fracture table, careful to well-pad all bony prominences. The right lower extremity was placed into a position of adduction, internal rotation, and traction. The preoperative fluoroscopy demonstrated satisfactory reduction. The patient was then prepped and draped in the usual sterile fashion. A preoperative dose of antibiotics was given and the usual timeout procedure was performed. At this point, a guidewire was placed percutaneously into the tip of the greater trochanter. It was then advanced into the femoral canal. Guidewire placement was confirmed fluoroscopically in 2 planes. An incision was now made at the site of the guidewire. Blunt spreading was then used to expose the fascia, which was then split in-line with its fibers. An opening reamer was then passed down to the tip of the greater trochanter, to the level of the lesser trochanter. The short guidewire was removed and a long guidewire was placed down to the distal aspect of the femur, centered at the physeal scar in 2 planes of fluoroscopy. The guidewire was measured and a 360-mm nail was chosen. The reaming was now started with a size 9, progressively up to a size 12.5. An 11-mm diameter nail was chosen. The nail was now inserted over the guidewire. Nail placement was confirmed fluoroscopically in 2 planes. The proximal trocar was now inserted through a small incision down to the level of the lateral femoral cortex. Guidepin was placed through the center of the femoral neck, into the center of the femoral head; confirmed in 2 planes fluoroscopically. The guidewire was measured and a -mm proximal lag screw was chosen and this was overreamed to 85 mm. The screw was now inserted. Screw placement was confirmed fluoroscopically in 2 planes. The set screw was now inserted and then backed off 1/4-turn to allow for compression. It should be noted that the long guidewire was removed prior to placing the proximal lag screw. Attention was then turned distally. Perfect [place] technique was utilized. Two incisions were made over the distal screw sites. Both sites were drilled, measured, and screws of appropriate length were inserted. The entire construct was examined fluoroscopically at this point. Both fracture reduction and hardware placement were satisfactory. The wounds were irrigated with saline. The subcutaneous tissue was approximated using 2-0 Vicryl. The skin was closed used 3-0 nylon. Sterile dressings were placed. The patient was extubated, transferred to recovery room in stable condition. Jose PERALTA/[id number]
[2018-03-05] MEDS: ENOXAPARIN NA (PORCINE) 40 MG/0.4 ML DISP.SYRIN SQ SCH (11:57)
[2018-03-05] MEDS: FERROUS SO4 325 MG TABLET (FP) PO SCH ×2 (11:57→21:02)
[2018-03-05] MEDS: MULTIVITAMINS (DAILY MVI) TABLET (FP) PO SCH (11:58)
[2018-03-05] MEDS: NICOTINE 7 MG/24 HOURS TOPICAL PATCH TD SCH (11:58)
[2018-03-05] MEDS: CALCIUM 500MG/VIT-D 200 UNITS COMBO TABLET (FP) PO SCH ×2 (11:58→21:01)
--- NOTE | 2018-03-05 13:26 | PN ---
Physical Exam: SUBJECTIVE: Patient seen and examined. No acute events overnight. Pt still complaining of persistent R leg pain. Rhett PO diet. Denies headaches, dizziness, nausea, vomiting, chest pain or shortness of breath. OBJECTIVE: Vital Signs Vital Signs - 24 hr 03/04/18 03/04/18 03/04/18 15:31 19:57 20:02 Temperature 97.4 F L 98.5 F Pulse Rate 92 H 92 H Respiratory 20 20 Rate Blood Pressure 109/54 107/49 O2 Sat by Pulse 96 Oximetry (%) 03/05/18 05:01 Temperature 98.7 F Pulse Rate 87 Respiratory 18 Rate Blood Pressure 118/44 O2 Sat by Pulse Oximetry (%) PHYSICAL EXAM GENERAL: AAOx3. NAD. Sitting comfortably. HEENT: AT/NC. Moist mucus membranes. EOMI. LUNGS: CTA B/L. No murmurs, rhonchi, rales noted. Symmetric chest rise. HEART: Regular rate and rhythm, S1, S2 with +murmur. ABDOMEN: Soft, nontender, nondistended, normoactive bowel sounds, no guarding. No masses or bruits noted. EXTREMITIES: 2+ dp and radial pulses b/l, warm, well-perfused, no edema. right hip with dressing intact at hip and at knee, no discharge through dressing and no surrounding erythema or bruising noted. does not want to move right hip or knee due to pain. able to move ankle and wiggle toes, sensation intact throughout leg. left hip rom wnl. NEUROLOGICAL: Cranial nerves II through XII grossly intact. Normal speech, facial symmetry. Active Medications Generic Name Dose Route Start Last Admin Trade Name Freq PRN Reason Stop Dose Admin Acetaminophen 650 mg 03/03/18 12:40 Tylenol - PO Q6H PRN PAIN Acetaminophen 325 mg 03/04/18 12:27 03/04/18 13:08 Tylenol - PO 03/07/18 12:26 325 mg Q4H PRN Administration PAIN 6-10 Calcium Carbonate/Cholecalciferol 1 tab 03/03/18 22:00 03/05/18 11:58 Os-Julian 500+D - PO 1 tab BID AIDEE Administration Docusate Sodium 100 mg 03/03/18 14:00 03/05/18 05:26 Colace - PO 100 mg TID AIDEE Administration Enoxaparin Sodium 40 mg 03/04/18 10:00 03/05/18 11:57 Lovenox - SQ 40 mg DAILY AIDEE Administration Ferrous Sulfate 325 mg 03/03/18 22:00 03/05/18 11:57 Feosol - PO 325 mg BID AIDEE Administration Morphine Sulfate 1 mg 03/04/18 12:15 Morphine Sulfate IVPUSH Q6H PRN PAIN LEVEL 7 - 10 Multivitamins/Minerals/Vitamin C 1 tab 03/04/18 10:00 03/05/18 11:58 Tab-A-Vit - PO 1 tab DAILY AIDEE Administration Nicotine 7 mg 03/04/18 10:00 03/05/18 11:58 Nicoderm Patch - TD Not Given DAILY AIDEE Ondansetron HCl 4 mg 03/03/18 12:40 Zofran Injection IVPUSH Q6H PRN NAUSEA AND/OR VOMITING Oxycodone HCl 5 mg 03/04/18 12:27 03/04/18 12:58 Roxicodone - PO 5 mg Q4H PRN Administration PAIN 6-10 CBC, BMP 03/03/18 13:00 03/02/18 19:45 ASSESSMENT/PLAN: 87 yr old woman with no significant medical history bibems s/p mechanical fall POD#2 from R hip IM nail. #Comminuted R femoral fracture s/p fall - POD #2 right hip IM nail placement - OOB to chair, PT therapy - cont Acetaminophen 325 mg PO Q4H PRN - cont Oxycodone 5 mg PO Q4H PRN - cont Morphine 1mg IVP [id number] to ambulation for better pain control, if not used, de-escalate pain meds - need for rehab discussed with CM #smoking cessation - cont Nicotine patch 7mg TD QD - encourage smoking cessation #Leukocytosis and anemia - post-op, likely due to blood loss and reactive leukocytosis. will trend for resolution - cont Ferrous sulfate 325 mg PO BID, per ortho #DVT Ppx - Lovenox 40 mg SQ QD #FEN -no IVf needed -check lytes in AM -Regular diet (vegetarian diet, pt does not eat meat) Code status: full code, HCP is her nephew, form signed and placed in chart. Dispo -pending rehab placement Visit type - Emergency Visit Emergency Visit: Yes ED Registration Date: 03/02/18 Care time: The patient presented to the Emergency Department on the above date and was hospitalized for further evaluation of their emergent condition. - New Patient This patient is new to me today: Yes Date on this admission: 03/05/18 - Critical Care Critical Care patient: No
[2018-03-05] MEDS: oxyCODONE HCL 5 MG TABLET PO PRN (14:01)
--- NOTE | 2018-03-05 18:17 | PN ---
Progress Note (short form) - Note Progress Note: Pt lying comf in bed. Pain controlled. Last Vital Signs Temp Pulse Resp BP Pulse Ox 99.4 F 89 18 113/53 96 03/05/18 14:31 03/05/18 14:31 03/05/18 14:31 03/05/18 14:31 03/04/18 20:02 RLE dressing cdi calves soft NT ehl fhl ta g s intact sens int to LT 2+ dp Abnormal Lab Results 03/05/18 19:30 WBC 12.3 H RBC 2.29 L Hgb 7.3 L Hct 21.4 L D a/p: pod 2 r hip IM nail -pain control w minimized narcotics -dvt proph -PT -oob->chair -will transfuse 1u prbc for hct 21
--- NOTE | 2018-03-05 19:53 | PN ---
Teaching Attending Note Name of Resident: Anita Medina ATTENDING PHYSICIAN STATEMENT I saw and evaluated the patient. I reviewed the resident's note and discussed the case with the resident. I agree with the resident's findings and plan as documented. SUBJECTIVE: Patient is comfortable with no acute distress. OBJECTIVE: Vital Signs Temperature 98.6 F 03/05/18 18:00 Pulse Rate 90 03/05/18 18:00 Respiratory Rate 18 03/05/18 18:00 Blood Pressure 106/52 03/05/18 18:00 O2 Sat by Pulse Oximetry (%) 96 03/05/18 09:00 CBCD WBC 11.9 K/mm3 (4.0-10.0) H 03/03/18 13:00 RBC 2.92 M/mm3 (3.60-5.2) L 03/03/18 13:00 Hgb 9.3 GM/dL (10.7-15.3) L 03/03/18 13:00 Hct 27.6 % (32.4-45.2) L D 03/03/18 13:00 MCV 94.5 fl (80-96) 03/03/18 13:00 MCHC 33.8 g/dl (32.0-36.0) 03/03/18 13:00 RDW 13.9 % (11.6-15.6) 03/03/18 13:00 Plt Count 199 K/MM3 (134-434) 03/03/18 13:00 MPV 8.7 fl (7.5-11.1) 03/03/18 13:00 CMP Sodium 141 mmol/L (136-145) 03/02/18 19:45 Potassium 4.4 mmol/L (3.5-5.1) 03/02/18 19:45 Chloride 105 mmol/L (98-107) 03/02/18 19:45 Carbon Dioxide 29 mmol/L (21-32) 03/02/18 19:45 Anion Gap 7 (8-16) L 03/02/18 19:45 BUN 12 mg/dL (7-18) 03/02/18 19:45 Creatinine 0.8 mg/dL (0.55-1.02) 03/02/18 19:45 Creat Clearance w eGFR > 60 (>60) 03/02/18 19:45 Random Glucose 110 mg/dL (74-106) H 03/02/18 19:45 Calcium 9.0 mg/dL (8.5-10.1) 03/02/18 19:45 Total Bilirubin 0.3 mg/dL (0.2-1.0) 03/02/18 19:45 AST 11 U/L (15-37) L 03/02/18 19:45 ALT 12 U/L (12-78) 03/02/18 19:45 Alkaline Phosphatase 59 U/L (45-117) 03/02/18 19:45 Total Protein 7.1 g/dl (6.4-8.2) 03/02/18 19:45 Albumin 3.5 g/dl (3.4-5.0) 03/02/18 19:45 Current Medications Generic Name Dose Route Start Last Admin Trade Name Freq PRN Reason Stop Dose Admin Acetaminophen 650 mg 03/03/18 12:40 Tylenol - PO Q6H PRN PAIN Acetaminophen 325 mg 03/04/18 12:27 03/04/18 13:08 Tylenol - PO 03/07/18 12:26 325 mg Q4H PRN Administration PAIN 6-10 Calcium Carbonate/Cholecalciferol 1 tab 03/03/18 22:00 03/05/18 11:58 Os-Julian 500+D - PO 1 tab BID AIDEE Administration Docusate Sodium 100 mg 03/03/18 14:00 03/05/18 14:02 Colace - PO 100 mg TID AIDEE Administration Enoxaparin Sodium 40 mg 03/04/18 10:00 03/05/18 11:57 Lovenox - SQ 40 mg DAILY AIDEE Administration Ferrous Sulfate 325 mg 03/03/18 22:00 03/05/18 11:57 Feosol - PO 325 mg BID AIDEE Administration Morphine Sulfate 1 mg 03/04/18 12:15 Morphine Sulfate IVPUSH Q6H PRN PAIN LEVEL 7 - 10 Multivitamins/Minerals/Vitamin C 1 tab 03/04/18 10:00 03/05/18 11:58 Tab-A-Vit - PO 1 tab DAILY AIDEE Administration Nicotine 7 mg 03/04/18 10:00 03/05/18 11:58 Nicoderm Patch - TD Not Given DAILY [facility] Ondansetron HCl 4 mg 03/03/18 12:40 Zofran Injection IVPUSH Q6H PRN NAUSEA AND/OR VOMITING Oxycodone HCl 5 mg 03/04/18 12:27 03/05/18 14:01 Roxicodone - PO 5 mg Q4H PRN Administration PAIN 6-10 Home Medications Medication Instructions Recorded Multivitamin [Multiple Vitamins] 1 each PO DAILY 03/02/18 PE: per resident's note ASSESSMENT AND PLAN: Patient is a 87 yr old man with no significant medical history s/p mechanical fall. while walking the dog. She was walking her terrier (20lbs) when the dog got excited and pulled on the leash. she fell down and fractured right hip interochantric hip fracture. # POD day #2 s/p Acute Right hip intertrochanteric fracture, right hip IM nail on the case. Possible to rehab in am. #smoking cessation nicotine patch 7mg TD ; smoking cessation advised #leucocytosis and anemia - post-op, likely due to blood loss and reactive leucocytosis. s/p on ancef perioperatively .continue iron supplementation per ortho DVT; lovanox qd diet - vegetarian diet, pt does not eat meat. Code status: full code, HCP is her nephew, form signed and placed in chart. Dispo: rehab placement in am
[2018-03-05 20:00] LABS: BASO % 0.3 % (0-2.0); EOS % 0.3 % (0-4.5); HEMATOCRIT 21.4 % (32.4-45.2); HEMOGLOBIN 7.3 GM/dL (10.7-15.3); LYMPH % 15.1 % (8-40); MCH 31.9 pg (25.7-33.7); MEAN CELL VOLUME 93.8 fl (80-96); MEAN PLT VOLUME 9.2 fl (7.5-11.1); NEUT % 76.3 % (42.8-82.8); PLATELET COUNT 229 K/MM3 (134-434); RBC 2.29 M/mm3 (3.60-5.2); RDW 13.9 % (11.6-15.6); WHITE BLOOD COUNT 12.3 K/mm3 (4.0-10.0)
[2018-03-06] MEDS: DOCUSATE SODIUM 100 MG CAPSULE (FP) PO SCH ×3 (06:39→22:17)
[2018-03-06 07:58] LABS: BASO % 0.5 % (0-2.0); EOS % 1.6 % (0-4.5); HEMATOCRIT 21.7 % (32.4-45.2); HEMOGLOBIN 7.4 GM/dL (10.7-15.3); MCH 32.4 pg (25.7-33.7); MEAN CELL VOLUME 95.2 fl (80-96); MEAN PLT VOLUME 9.1 fl (7.5-11.1); MONO % 10.3 % (3.8-10.2); NEUT % 66.6 % (42.8-82.8); PLATELET COUNT 227 K/MM3 (134-434); RBC 2.27 M/mm3 (3.60-5.2); RDW 13.8 % (11.6-15.6); WHITE BLOOD COUNT 11.2 K/mm3 (4.0-10.0)
[2018-03-06 08:12] LABS: CHLORIDE 100 mmol/L (98-107); POTASSIUM 4.6 mmol/L (3.5-5.1); SODIUM 137 mmol/L (136-145)
[2018-03-06 08:17] LABS: ANION GAP 8 (8-16); BLOOD UREA NITROGEN 23 mg/dL (7-18); CALCIUM 8.9 mg/dL (8.5-10.1); CO2 29 mmol/L (21-32); CREATININE 0.7 mg/dL (0.55-1.02); GLUCOSE,RANDOM 117 mg/dL (74-106)
--- NOTE | 2018-03-06 09:17 | PN ---
Teaching Attending Note Name of Resident: Anita Medina ATTENDING PHYSICIAN STATEMENT I saw and evaluated the patient. I reviewed the resident's note and discussed the case with the resident. I agree with the resident's findings and plan as documented. SUBJECTIVE: Patient is comfortable with no acute distress, sitting on the chair, niece at bedside. OBJECTIVE: Vital Signs Temperature 98.2 F 03/06/18 06:00 Pulse Rate 83 03/06/18 06:00 Respiratory Rate 20 03/06/18 06:00 Blood Pressure 102/60 03/06/18 06:00 O2 Sat by Pulse Oximetry (%) 96 03/05/18 21:00 CBCD WBC 11.2 K/mm3 (4.0-10.0) H 03/06/18 06:30 RBC 2.27 M/mm3 (3.60-5.2) L 03/06/18 06:30 Hgb 7.4 GM/dL (10.7-15.3) L 03/06/18 06:30 Hct 21.7 % (32.4-45.2) L 03/06/18 06:30 MCV 95.2 fl (80-96) 03/06/18 06:30 MCHC 34.0 g/dl (32.0-36.0) 03/06/18 06:30 RDW 13.8 % (11.6-15.6) 03/06/18 06:30 Plt Count 227 K/MM3 (134-434) 03/06/18 06:30 MPV 9.1 fl (7.5-11.1) 03/06/18 06:30 CMP Sodium 137 mmol/L (136-145) 03/06/18 06:30 Potassium 4.6 mmol/L (3.5-5.1) 03/06/18 06:30 Chloride 100 mmol/L (98-107) 03/06/18 06:30 Carbon Dioxide 29 mmol/L (21-32) 03/06/18 06:30 Anion Gap 8 (8-16) 03/06/18 06:30 BUN 23 mg/dL (7-18) H 03/06/18 06:30 Creatinine 0.7 mg/dL (0.55-1.02) 03/06/18 06:30 Creat Clearance w eGFR > 60 (>60) 03/06/18 06:30 Random Glucose 117 mg/dL (74-106) H 03/06/18 06:30 Calcium 8.9 mg/dL (8.5-10.1) 03/06/18 06:30 Total Bilirubin 0.3 mg/dL (0.2-1.0) 03/02/18 19:45 AST 11 U/L (15-37) L 03/02/18 19:45 ALT 12 U/L (12-78) 03/02/18 19:45 Alkaline Phosphatase 59 U/L (45-117) 03/02/18 19:45 Total Protein 7.1 g/dl (6.4-8.2) 03/02/18 19:45 Albumin 3.5 g/dl (3.4-5.0) 03/02/18 19:45 Current Medications Generic Name Dose Route Start Last Admin Trade Name Freq PRN Reason Stop Dose Admin Acetaminophen 650 mg 03/03/18 12:40 Tylenol - PO Q6H PRN PAIN Acetaminophen 325 mg 03/04/18 12:27 03/04/18 13:08 Tylenol - PO 03/07/18 12:26 325 mg Q4H PRN Administration PAIN 6-10 Calcium Carbonate/Cholecalciferol 1 tab 03/03/18 22:00 03/05/18 21:01 Os-Julian 500+D - PO 1 tab BID AIDEE Administration Docusate Sodium 100 mg 03/03/18 14:00 03/06/18 06:39 Colace - PO 100 mg TID AIDEE Administration Enoxaparin Sodium 40 mg 03/04/18 10:00 03/05/18 11:57 Lovenox - SQ 40 mg DAILY AIDEE Administration Ferrous Sulfate 325 mg 03/03/18 22:00 03/05/18 21:02 Feosol - PO 325 mg BID AIDEE Administration Morphine Sulfate 1 mg 03/04/18 12:15 Morphine Sulfate IVPUSH Q6H PRN PAIN LEVEL 7 - 10 Multivitamins/Minerals/Vitamin C 1 tab 03/04/18 10:00 03/05/18 11:58 Tab-A-Vit - PO 1 tab DAILY AIDEE Administration Nicotine 7 mg 03/04/18 10:00 03/05/18 11:58 Nicoderm Patch - TD Not Given DAILY [facility] Ondansetron HCl 4 mg 03/03/18 12:40 Zofran Injection IVPUSH Q6H PRN NAUSEA AND/OR VOMITING Oxycodone HCl 5 mg 03/04/18 12:27 03/05/18 14:01 Roxicodone - PO 5 mg Q4H PRN Administration PAIN 6-10 Home Medications Medication Instructions Recorded Multivitamin [Multiple Vitamins] 1 each PO DAILY 03/02/18 PE: per resident's note ASSESSMENT AND PLAN: Patient is a 87 yr old man with no significant medical history s/p mechanical fall. while walking the dog. She was walking her terrier (20lbs) when the dog got excited and pulled on the leash. she fell down and fractured right hip interochantric hip fracture. # POD day #3 s/p Acute Right hip intertrochanteric fracture, right hip IM nail on the case. for rehab today # Anemia: hemoglobin dropped to 7.4 , s/p one unit of PRBC t #smoking cessation nicotine patch 7mg TD ; smoking cessation advised #leucocytosis and anemia - post-op, likely due to blood loss and reactive leucocytosis. s/p on ancef perioperatively .continue iron supplementation per ortho DVT; lovanox qd diet - vegetarian diet, pt does not eat meat. Code status: full code, HCP is her nephew, form signed and placed in chart. Dispo: rehab placement in am
[2018-03-06] MEDS ORDERED: PT OWN MED DRAWER 7, Y5N ONE (10:23)
[2018-03-06] MEDS: CALCIUM 500MG/VIT-D 200 UNITS COMBO TABLET (FP) PO SCH ×2 (10:26→22:17)
[2018-03-06] MEDS: FERROUS SO4 325 MG TABLET (FP) PO SCH ×2 (10:26→22:17)
[2018-03-06] MEDS: MULTIVITAMINS (DAILY MVI) TABLET (FP) PO SCH (10:26)
[2018-03-06] MEDS: ENOXAPARIN NA (PORCINE) 40 MG/0.4 ML DISP.SYRIN SQ SCH (10:27)
[2018-03-06] MEDS: oxyCODONE HCL 5 MG TABLET PO PRN ×2 (10:27→17:18)
[2018-03-06] MEDS: NICOTINE 7 MG/24 HOURS TOPICAL PATCH TD SCH (10:30)
--- NOTE | 2018-03-06 18:37 | PN ---
Physical Exam: SUBJECTIVE: Patient seen and examined at bedside. No acute events overnight. OBJECTIVE: Vital Signs Period Temp Pulse Resp BP Sys/Graves Pulse Ox Last 24 Hr 98.2 F-98.4 F 81-83 18-20 102-105/48-60 96-97 PHYSICAL EXAMINATION GENERAL: AAOx3. NAD. Sitting comfortably. HEENT: AT/NC. Moist mucus membranes. EOMI. LUNGS: CTA B/L. No murmurs, rhonchi, rales noted. Symmetric chest rise. HEART: Regular rate and rhythm, S1, S2 with +murmur. ABDOMEN: Soft, nontender, nondistended, normoactive bowel sounds, no guarding. No masses or bruits noted. EXTREMITIES: 2+ dp and radial pulses b/l, warm, well-perfused, no edema. right hip with dressing intact at hip and at knee, no discharge through dressing and no surrounding erythema or bruising noted. does not want to move right hip or knee due to pain. able to move ankle and wiggle toes, sensation intact throughout leg. left hip rom wnl. NEUROLOGICAL: Cranial nerves II through XII grossly intact. Normal speech, facial symmetry. Laboratory Results - last 24 hr 03/05/18 03/06/18 03/06/18 19:30 06:30 06:30 WBC 12.3 H 11.2 H RBC 2.29 L 2.27 L Hgb 7.3 L 7.4 L Hct 21.4 L D 21.7 L MCV 93.8 95.2 MCH 31.9 32.4 MCHC 34.0 34.0 RDW 13.9 13.8 Plt Count 229 227 MPV 9.2 9.1 Absolute Neuts (auto) 9.4 7.5 Neutrophils % 76.3 66.6 Lymphocytes % 15.1 D 21.0 D Monocytes % 8.0 10.3 H Eosinophils % 0.3 D 1.6 D Basophils % 0.3 0.5 Nucleated RBC % 0 0 Sodium 137 Potassium 4.6 Chloride 100 Carbon Dioxide 29 Anion Gap 8 BUN 23 H Creatinine 0.7 Creat Clearance w eGFR > 60 Random Glucose 117 H Calcium 8.9 Ferritin Blood Type Antibody Screen Crossmatch 03/06/18 03/06/18 06:30 13:20 WBC RBC Hgb Hct MCV MCH MCHC RDW Plt Count MPV Absolute Neuts (auto) Neutrophils % Lymphocytes % Monocytes % Eosinophils % Basophils % Nucleated RBC % Sodium Potassium Chloride Carbon Dioxide Anion Gap BUN Creatinine Creat Clearance w eGFR Random Glucose Calcium Ferritin 32.8 Blood Type A POSITIVE Antibody Screen Negative Crossmatch See Detail Active Medications Generic Name Dose Route Start Last Admin Trade Name Freq PRN Reason Stop Dose Admin Acetaminophen 650 mg 03/03/18 12:40 Tylenol - PO Q6H PRN PAIN Acetaminophen 325 mg 03/04/18 12:27 03/04/18 13:08 Tylenol - PO 03/07/18 12:26 325 mg Q4H PRN Administration PAIN 6-10 Calcium Carbonate/Cholecalciferol 1 tab 03/03/18 22:00 03/06/18 10:26 Os-Julian 500+D - PO 1 tab BID AIDEE Administration Docusate Sodium 100 mg 03/03/18 14:00 03/06/18 13:03 Colace - PO 100 mg TID AIDEE Administration Enoxaparin Sodium 40 mg 03/04/18 10:00 03/06/18 10:27 Lovenox - SQ 40 mg DAILY AIDEE Administration Ferrous Sulfate 325 mg 03/03/18 22:00 03/06/18 10:26 Feosol - PO 325 mg BID AIDEE Administration Morphine Sulfate 1 mg 03/04/18 12:15 Morphine Sulfate IVPUSH Q6H PRN PAIN LEVEL 7 - 10 Multivitamins/Minerals/Vitamin C 1 tab 03/04/18 10:00 03/06/18 10:26 Tab-A-Vit - PO 1 tab DAILY [facility] Administration Nicotine 7 mg 03/04/18 10:00 03/06/18 10:30 Nicoderm Patch - TD Not Given DAILY [facility] Ondansetron HCl 4 mg 03/03/18 12:40 Zofran Injection IVPUSH Q6H PRN NAUSEA AND/OR VOMITING Oxycodone HCl 5 mg 03/04/18 12:27 03/06/18 17:18 Roxicodone - PO 5 mg Q4H PRN Administration PAIN 6-10 ASSESSMENT/PLAN: 87 yr old woman with no significant medical history bibems s/p mechanical fall POD#2 from R hip IM nail. #Comminuted R femoral fracture s/p fall - POD #2 right hip IM nail placement - OOB to chair, PT therapy - cont Acetaminophen 325 mg PO Q4H PRN - cont Oxycodone 5 mg PO Q4H PRN - cont Morphine 1mg IVP [id number] to ambulation for better pain control, if not used, de-escalate pain meds - need for rehab discussed with CM #smoking cessation - cont Nicotine patch 7mg TD QD - encourage smoking cessation #Leukocytosis and anemia - Hgb dropped from 7.5 to 7.1. Pt asymptomatic and HD stable. -1U pRBC given, recheck CBC after infusion - cont Ferrous sulfate 325 mg PO BID, per ortho #DVT Ppx - Lovenox 40 mg SQ QD #FEN -no IVf needed -check lytes in AM -Regular diet (vegetarian diet, pt does not eat meat) Code status: full code, HCP is her nephew, form signed and placed in chart. Dispo -pending rehab placement Visit type - Emergency Visit Emergency Visit: Yes ED Registration Date: 03/02/18 Care time: The patient presented to the Emergency Department on the above date and was hospitalized for further evaluation of their emergent condition. - New Patient This patient is new to me today: No - Critical Care Critical Care patient: No
[2018-03-07 06:06] LABS: SERUM IRON SATURATION 15 % (15-55); TOTAL IRON BINDING CAPACITY 222 ug/dL (250-450); UIBC 188 ug/dL (118-369)
[2018-03-07] MEDS: DOCUSATE SODIUM 100 MG CAPSULE (FP) PO SCH ×3 (06:15→21:38)
[2018-03-07] MEDS ORDERED: PT OWN MED DRAWER 7, Y5N ONE (10:05)
[2018-03-07] MEDS: FERROUS SO4 325 MG TABLET (FP) PO SCH ×2 (10:07→21:38)
[2018-03-07] MEDS: MULTIVITAMINS (DAILY MVI) TABLET (FP) PO SCH (10:07)
[2018-03-07] MEDS: CALCIUM 500MG/VIT-D 200 UNITS COMBO TABLET (FP) PO SCH ×2 (10:07→21:38)
[2018-03-07] MEDS: NICOTINE 7 MG/24 HOURS TOPICAL PATCH TD SCH (10:08)
[2018-03-07] MEDS: ENOXAPARIN NA (PORCINE) 40 MG/0.4 ML DISP.SYRIN SQ SCH (10:08)
[2018-03-07 11:14] LABS: HEMATOCRIT 23.3 % (32.4-45.2); HEMOGLOBIN 8.2 GM/dL (10.7-15.3); MCH 32.3 pg (25.7-33.7); MCHC 35.1 g/dl (32.0-36.0); MEAN CELL VOLUME 91.9 fl (80-96); MEAN PLT VOLUME 8.7 fl (7.5-11.1); PLATELET COUNT 234 K/MM3 (134-434); RBC 2.54 M/mm3 (3.60-5.2); RDW 15.1 % (11.6-15.6); WHITE BLOOD COUNT 7.8 K/mm3 (4.0-10.0)
[2018-03-07 11:51] LABS: ANION GAP 9 (8-16); BLOOD UREA NITROGEN 19 mg/dL (7-18); CALCIUM 8.5 mg/dL (8.5-10.1); CHLORIDE 100 mmol/L (98-107); CO2 28 mmol/L (21-32); GLUCOSE,RANDOM 116 mg/dL (74-106); SODIUM 137 mmol/L (136-145)
[2018-03-07 11:54] LABS: CREATININE 0.6 mg/dL (0.55-1.02)
--- NOTE | 2018-03-07 12:25 | PN ---
Progress Note (short form) - Note Progress Note: Pt sitting comf in chair. Pain controlled. Last Vital Signs Temp Pulse Resp BP Pulse Ox 98.7 F 84 18 112/54 97 03/07/18 06:27 03/07/18 06:27 03/07/18 06:27 03/07/18 06:27 03/06/18 21:00 RLE dressing cdi calves soft NT ehl fhl ta g s intact sens int to LT 2+ dp a/p: pod 4 r hip IM nail -pain control w minimized narcotics -dvt proph (continue for 1 mo post op) -PT -oob->chair -pt improved hct s/p transfusion -stable for DC -to follow up 2 weeks for suture removal
--- NOTE | 2018-03-07 15:31 | DS ---
Physical Exam: SUBJECTIVE: Patient seen and examined OBJECTIVE: Vital Signs Period Temp Pulse Resp BP Sys/Graves Pulse Ox Last 24 Hr 97.3 F-98.7 F 76-84 18-18 92-122/42-54 97 PHYSICAL EXAM GENERAL: The patient is awake, alert, and fully oriented, in no acute distress. HEAD: Normal with no signs of trauma. EYES: PERRL, extraocular movements intact, sclera anicteric, conjunctiva clear. ENT: Ears normal, nares patent, oropharynx clear without exudates, moist mucous membranes. NECK: Trachea midline, full range of motion, supple. LUNGS: Breath sounds equal, clear to auscultation bilaterally, no wheezes, no crackles, no accessory muscle use. HEART: Regular rate and rhythm, S1, S2 without murmur, rub or gallop. ABDOMEN: Soft, nontender, nondistended, normoactive bowel sounds, no guarding, no rebound, no hepatosplenomegaly, no masses. EXTREMITIES: 2+ pulses, warm, well-perfused, no edema. NEUROLOGICAL: Cranial nerves II through XII grossly intact. Normal speech, gait not observed. PSYCH: Normal mood, normal affect. SKIN: Warm, dry, normal turgor, no rashes or lesions noted. LABS Laboratory Results - last 24 hr 03/06/18 03/06/18 03/06/18 10:30 10:30 13:20 WBC RBC Hgb Hct MCV MCH MCHC RDW Plt Count MPV Sodium Potassium Chloride Carbon Dioxide Anion Gap BUN Creatinine Creat Clearance w eGFR Random Glucose Calcium Iron 34 TIBC 222 L Iron Saturation 15 Transferrin 178 L Blood Type A POSITIVE Antibody Screen Negative Crossmatch See Detail 03/07/18 03/07/18 11:00 11:00 WBC 7.8 RBC 2.54 L Hgb 8.2 L Hct 23.3 L MCV 91.9 MCH 32.3 MCHC 35.1 RDW 15.1 Plt Count 234 MPV 8.7 Sodium 137 Potassium 4.0 Chloride 100 Carbon Dioxide 28 Anion Gap 9 BUN 19 H Creatinine 0.6 Creat Clearance w eGFR > 60 Random Glucose 116 H Calcium 8.5 Iron TIBC Iron Saturation Transferrin Blood Type Antibody Screen Crossmatch HOSPITAL COURSE: Date of Admission:03/02/18 IMAGING: [facility] xray: Acute right femoral intertrochanteric fracture. Stable pelvic calcifications. R Femur xray: Acute proximal right femoral fracture. No sign of femoral head dislocation. B/l knee xray: No acute right knee pathology. 87F w/ no significant pmhx was admitted for R hip intertrochanteric fracture after a mechanical fall. A pelvic xray was done that showed an acute R femoral intertrochanteric fx. Ortho was consulted. She underwent a R hip intramedullary nail surgery and was monitored post-op. She was given medication for pain. Her hospital stay was complicated by an acute drop in her Hgb although the pt was clinically asymptomatic. Due to this acute drop, pt was given 1U of pRBC and monitored overnight. Her Hgb improved and was later discharged to a rehab facility for PT. She was given instructions to follow up with her PCP and orthopedic surgeon for suture removal. Date of Discharge: 03/07/18 Minutes to complete discharge: 35 Discharge Summary Reason For Visit: INTROHANTERIC FRACT OF RIGHT FEMUR Condition: Improved - Instructions Diet, Activity, Other Instructions: You were admitted to the hospital for a hip fracture after a fall. You had surgery for your right hip fracture. Additionally, during your hospital stay, you became anemic and had a blood transfusion to help with your anemia. After repeat blood work, your red cell count increased and your symptoms improved.You are being discharged to [facility] for physical therapy due to your recent surgery. MEDICAL RECOMMENDATIONS Please take the following medications for pain: Please take Morphine 1mg IVP once every 6 hours as needed. Please take Oxycodone 5 mg tab once every 6 hours as needed. Please take Tylenol 325 mg every 4 hours for pain as needed. Please take Ferrous sulfate 325 mg twice a day. Please use a 7 mg nicotine patch once a day and please stop smoking. Please take Colace 100 mg three times a day. Please take Calcium 500 mg/Vit D 200U 1 tablet twice a day. Please take Lovenox 40 mg subcutaneous injection once a day. Please continue taking a multivitamin once a day. CONSULT RECOMMENDATIONS Please follow up with your primary care physician within 1 week. Please follow up with your orthopedic surgeon, Dr. Mansfield in 2 weeks for suture removal. If you experience any falls and are unable to get up, or experience worsening chest pain, shortness of breath, fevers/chills, persistent fainting episodes, please proceed to your nearest emergency room immediately. Referrals: [facility] [place] [facility] [Provider Group] - 1 Week Darryn Mansfield MD [Staff Physician] - 2 Weeks Disposition: [facility] - Home Medications Comprehensive Discharge Medication List: Ambulatory Orders Multivitamin [Multiple Vitamins] 1 each PO DAILY 03/02/18 Acetaminophen [Tylenol .Regular Strength -] 325 mg PO Q4H PRN tablet 03/07/18 Calcium 500Mg/Vit-D 200 Units [Os-Julian 500+D -] 1 tab PO BID tab 03/07/18 Docusate Sodium [Colace -] 100 mg PO TID capsule 03/07/18 Enoxaparin [Lovenox -] 40 mg SQ DAILY disp.syrin 03/07/18 Ferrous Sulfate [Feosol] 325 mg PO BID ud 03/07/18 Morphine Sulfate 1 mg IVPUSH Q6H PRN vial MDD 4mg 03/07/18 Nicotine Patch [Nicoderm Patch -] 7 mg TD DAILY patch 03/07/18 Ondansetron Injection [Zofran Injection] 4 mg IVPUSH Q6H PRN vial 03/07/18 oxyCODONE HCL [Roxicodone -] 5 mg PO Q6H PRN tablet MDD 20 03/07/18 This patient is new to me today: No Emergency Visit: Yes ED Registration Date: 03/02/18 Care time: The patient presented to the Emergency Department on the above date and was hospitalized for further evaluation of their emergent condition. Critical Care patient: No - Discharge Referral Referred to [facility] No
--- NOTE | 2018-03-07 16:02 | PN ---
Teaching Attending Note Name of Resident: Anita Medina ATTENDING PHYSICIAN STATEMENT I saw and evaluated the patient. I reviewed the resident's note and discussed the case with the resident. I agree with the resident's findings and plan as documented. SUBJECTIVE: Patient complains of pain in her right leg. OBJECTIVE: Vital Signs Period Temp Pulse Resp BP Sys/Graves Pulse Ox Last 24 Hr 97.3 F-98.7 F 76-84 18-18 92-122/42-54 97 HEART: S1S2, RRR LUNGS: Clear ABDOMEN: Soft, non-tender, non-distended, normal BS EXTREMITIES: No edema Laboratory Results - last 24 hr 03/06/18 03/06/18 03/06/18 10:30 10:30 13:20 WBC RBC Hgb Hct MCV MCH MCHC RDW Plt Count MPV Sodium Potassium Chloride Carbon Dioxide Anion Gap BUN Creatinine Creat Clearance w eGFR Random Glucose Calcium Iron 34 TIBC 222 L Iron Saturation 15 Transferrin 178 L Blood Type A POSITIVE Antibody Screen Negative Crossmatch See Detail 03/07/18 03/07/18 11:00 11:00 WBC 7.8 RBC 2.54 L Hgb 8.2 L Hct 23.3 L MCV 91.9 MCH 32.3 MCHC 35.1 RDW 15.1 Plt Count 234 MPV 8.7 Sodium 137 Potassium 4.0 Chloride 100 Carbon Dioxide 28 Anion Gap 9 BUN 19 H Creatinine 0.6 Creat Clearance w eGFR > 60 Random Glucose 116 H Calcium 8.5 Iron TIBC Iron Saturation Transferrin Blood Type Antibody Screen Crossmatch Current Medications Generic Name Dose Route Start Last Admin Trade Name Freq PRN Reason Stop Dose Admin Acetaminophen 650 mg 03/03/18 12:40 Tylenol - PO Q6H PRN PAIN Calcium Carbonate/Cholecalciferol 1 tab 03/03/18 22:00 03/07/18 10:07 Os-Julian 500+D - PO 1 tab BID AIDEE Administration Docusate Sodium 100 mg 03/03/18 14:00 03/07/18 14:59 Colace - PO 100 mg TID AIDEE Administration Enoxaparin Sodium 40 mg 03/04/18 10:00 03/07/18 10:08 Lovenox - SQ 40 mg DAILY AIDEE Administration Ferrous Sulfate 325 mg 03/03/18 22:00 03/07/18 10:07 Feosol - PO 325 mg BID AIDEE Administration Morphine Sulfate 1 mg 08/05/18 12:15 Morphine Sulfate IVPUSH Q6H PRN PAIN LEVEL 7 - 10 Multivitamins/Minerals/Vitamin C 1 tab 03/04/18 10:00 03/07/18 10:07 Tab-A-Vit - PO 1 tab DAILY [facility]EE Administration Nicotine 7 mg 03/04/18 10:00 03/07/18 10:08 Nicoderm Patch - TD Not Given DAILY [facility] Ondansetron HCl 4 mg 03/03/18 12:40 Zofran Injection IVPUSH Q6H PRN NAUSEA AND/OR VOMITING Oxycodone HCl 5 mg 03/04/18 12:27 03/06/18 17:18 Roxicodone - PO 5 mg Q4H PRN Administration PAIN 6-10 ASSESSMENT AND PLAN: This is an 87 year old man with no significant history who presented to the ED after falling while walking her dog. 1. Intertrochanteric right femur fracture - s/p IM nail 03/03 - Pain control - Continue PT - Continue Lovenox for DVT prophylaxis - Discharge to subacute rehab when bed available 2. Acute blood loss anemia - Transfused 1 units PRBCs with improvement - Continue ferrous sulfate, MVI 3. Nicotine dependence - Continue nicotine patch
[2018-03-08] MEDS: DOCUSATE SODIUM 100 MG CAPSULE (FP) PO SCH (05:49)
[2018-03-08] MEDS: oxyCODONE HCL 5 MG TABLET PO PRN (10:06)
[2018-03-08] MEDS: FERROUS SO4 325 MG TABLET (FP) PO SCH (10:07)
[2018-03-08] MEDS: MULTIVITAMINS (DAILY MVI) TABLET (FP) PO SCH (10:07)
[2018-03-08] MEDS: CALCIUM 500MG/VIT-D 200 UNITS COMBO TABLET (FP) PO SCH (10:07)
[2018-03-08] MEDS: NICOTINE 7 MG/24 HOURS TOPICAL PATCH TD SCH (10:08)
[2018-03-08] MEDS: ENOXAPARIN NA (PORCINE) 40 MG/0.4 ML DISP.SYRIN SQ SCH (10:08)
[2018-03-08 12:10] VITALS: BP 93/58; PULSE 75; TEMP 98.3
== END 2018-03-08 12:43 | DRG 481 ==
LOC: JER 18:47 → JERBED 22:25 → UNDOADMIN 23:33 → J6S 03-03 01:06
PROVIDERS: ADMIT Internal Medicine; ATTEND Internal Medicine
PROC: 0QS606Z Reposition Right Upper Femur with Intramedullary Internal Fixation Device, Open Approach (ICD-10-PCS; principal; 2018-03-03 10:00)
PROC: 30233N1 Transfusion of Nonautologous Red Blood Cells into Peripheral Vein, Percutaneous Approach (ICD-10-PCS; 2018-03-06)
DX: S72.144A Nondisplaced intertrochanteric fracture of right femur, initial encounter for closed fracture (principal); D62 Acute posthemorrhagic anemia; W19.XXXA Unspecified fall, initial encounter; F17.210 Nicotine dependence, cigarettes, uncomplicated; Y93.89 Activity, other specified; Y92.488 Other paved roadways as the place of occurrence of the external cause; Y99.8 Other external cause status
CPT/HCPCS: 36415; 36430; 71045-TC-FY; 72100-TC-FY; 72170-TC-FY; 73552-TC-RT-FY; 73560-TC-RT-FY; 76000-TC-FY; 80048; 80053; 82728; 83540; 83550; 84443; 84466; 85025; 85027; 85610; 85730; 86850; 86900; 86901; 86922; 93005; 93010; 94760; 97116-GP; 97161-GP; 99285-25; P9038; P9058

== ENCOUNTER 2019-04-14 00:58 | Inpatient (IN) | payer OTHER, MEDICARE ==
--- NOTE | 2019-04-14 02:03 | PDOC ---
History of Present Illness - General Chief Complaint: Altered Mental Status Stated Complaint: AMS Time Seen by Provider: 04/14/19 01:31 History Source: Family (nephew is here with her DNR/DNI/ NO PEG TUBE requests) - History of Present Illness Initial Comments: 04/14/19 02:38 Pt was normal yesterday; for a week or more now all she has been drinking is OJ Timing/Duration: 24 hours Severity: severe Past History - Travel Traveled outside of the country in the last 30 days: No Close contact w/someone who was outside of country & ill: No - Past Medical History Allergies/Adverse Reactions: Allergies Allergy/AdvReac Type Severity Reaction Status Date / Time No Known Allergies Allergy Verified 04/14/19 02:52 Home Medications: Ambulatory Orders NK [No Known Home Medication] 04/14/19 COPD: No DVT: No Thyroid Disease: Yes - Suicide/Smoking/Psychosocial Hx Smoking History: Unknown if ever smoked Have you smoked in the past 12 months: No Number of Cigarettes Smoked Daily: 3 Information on smoking cessation initiated: No 'Breaking Loose' booklet given: 03/02/18 Hx Alcohol Use: No Drug/Substance Use Hx: No Substance Use Type: None Review of Systems - Review of Systems Able to Perform ROS?: No (AMS; yelling"coffee") Is the patient limited French proficient: No *Physical Exam - Vital Signs Last Vital Signs Temp Pulse Resp BP Pulse Ox 99.4 F 114 H 23 H 102/41 L 92 L 04/14/19 01:29 04/14/19 01:29 04/14/19 01:29 04/14/19 01:29 04/14/19 01:29 - Physical Exam Comments: 04/14/19 02:39 Pt is cachectic and dry General Appearance: Yes: Disheveled, Cachetic HEENT: positive: Normal Voice, TMs Normal Neck: positive: Trachea midline, Supple Respiratory/Chest: positive: Lungs Clear, Normal Breath Sounds Cardiovascular: positive: Regular Rhythm, S1, S2, Tachycardia Gastrointestinal/Abdominal: positive: Tender, Flat, Increased Bowel Sounds Musculoskeletal: positive: Normal Inspection. negative: CVA Tenderness Extremity: positive: Normal Inspection, Normal Range of Motion Integumentary: positive: Dry, Warm, Jaundice Neurologic: positive: Motor Strength 5/5, Confused ED Treatment Course - LABORATORY CBC & Chemistry Diagram: 04/14/19 02:30 04/14/19 02:30 - RADIOLOGY Radiology Studies Ordered: Category Date Time Status HEAD CT WITHOUT CONTRAST [CT] Stat CT Scan 04/14/19 01:31 Taken Medical Decision Making - Medical Decision Making 04/14/19 02:48 Patient Name: AMILCAR DEMPSEY THIS IS A PRELIMINARY REPORT FROM [facility] DATE OF SERVICE: 2019-04-14 01:38:09 IMAGES: 147 EXAM: HEAD CT WITHOUT CONTRAST HISTORY: Mental status changes COMPARISON: None. FINDINGS: The ventricular system is midline and nondilated. There is mild cortical atrophy and small vessel ischemic disease. There is no bleed, mass, extra-axial fluid collection or mass effect. No skull fracture or skull lesion is identified. The visualized paranasal sinuses and mastoid air cells are clear. IMPRESSION: No evidence of acute pathology. 04/14/19 03:18 NEXT OF KIN STATES NO BLOOD TRANSFUSION 04/14/19 23:57 Pt has elevated K+ and she will be admitted for treatment and monitoring; nephew who is the health care proxy deciding what to do to treat the patient. *DC/Admit/Observation/Transfer Diagnosis at time of Disposition: Hyperkalemia, Dehydration, Anemia, Confusion, Altered mental state, DNR (do not resuscitate) - Discharge Dispostion Disposition: Condition at time of disposition: Critical Decision to Admit order: Yes - Referrals - Patient Instructions - Post Discharge Activity
[2019-04-14] MEDS ORDERED: SODIUM CHLORIDE 0.9% 500 ML INFUS.BAG IV ONE (02:32)
[2019-04-14] MEDS ORDERED: FAMOTIDINE 20 MG/50 ML IVPB 20 MG/50 ML MG IVPB ONE ×2 (02:32→03:16)
[2019-04-14 02:43] LABS: BASO % 0.1 % (0-2.0); EOS % 0.1 % (0-4.5); HEMATOCRIT 16.9 % (32.4-45.2); LYMPH % 8.3 % (8-40); MCH 28.2 pg (25.7-33.7); MCHC 28.1 g/dl (32.0-36.0); MEAN CELL VOLUME 100.5 fl (80-96); MEAN PLT VOLUME 9.1 fl (7.5-11.1); MONO % 5.8 % (3.8-10.2); NEUT % 85.7 % (42.8-82.8); PLATELET COUNT 302 K/MM3 (134-434); RBC 1.68 M/mm3 (3.60-5.2); RDW 16.5 % (11.6-15.6); WHITE BLOOD COUNT 22.3 K/mm3 (4.0-10.0)
[2019-04-14 02:53] LABS: HEMOGLOBIN 4.7 GM/dL (10.7-15.3)
[2019-04-14 03:20] LABS: BILIRUBIN,TOTAL 0.5 mg/dL (0.2-1); BLOOD UREA NITROGEN 48.5 mg/dL (7-18); CALCIUM 9.9 mg/dL (8.5-10.1); CREATININE 2.3 mg/dL (0.55-1.3); TOT PROT 6.9 g/dl (6.4-8.2)
[2019-04-14 03:24] LABS: POTASSIUM 7.2 mmol/L (3.5-5.1)
[2019-04-14] MEDS ORDERED: DEXTROSE 50%-WATER - 25 GM/50 ML VIAL IVPUSH ONE (03:24)
[2019-04-14] MEDS ORDERED: INSULIN REGULAR HUMAN 100 UNITS/ML *VIAL IVPUSH ONE (03:25)
[2019-04-14] MEDS ORDERED: DEXTROSE 50%-WATER 25 GM/50 ML DISP.SYRIN ONE ×2 (03:32→03:39)
[2019-04-14 05:54] VITALS: BP 108/52; PULSE 88; TEMP 97.4; BMI 18.3
[2019-04-14 06:29] LABS: ANISOCYTOSIS 2+; MACROCYTOSIS 1+; PLATELET ESTIMATE NORMAL
--- NOTE | 2019-04-14 11:07 | HOSP ---
Physical Examination Vital Signs: Vital Signs Temperature 97.4 F L 04/14/19 05:36 Pulse Rate 88 04/14/19 05:36 Respiratory Rate 24 H 04/14/19 05:36 Blood Pressure 108/52 L 04/14/19 05:36 O2 Sat by Pulse Oximetry (%) 97 04/14/19 05:36 Labs: CBC, BMP 04/14/19 02:30 04/14/19 02:30 Hospitalist Encounter Assessment: Called by RN Eliseo. Patient DNR. 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
--- NOTE | 2019-04-14 16:46 | EKG ---
Test Reason : Blood Pressure : / mmHG Vent. Rate : 089 BPM Atrial Rate : 068 BPM P-R Int : 000 ms QRS Dur : 134 ms QT Int : 420 ms P-R-T Axes : 000 060 245 degrees QTc Int : 511 ms ATRIAL FIBRILLATION LEFT BUNDLE BRANCH BLOCK ABNORMAL ECG Confirmed by MD TIP, MAGY ([id number]) on 04/14/2019 4:45:48 PM Referred By: Confirmed By:MAGY WHELAN MD
== END 2019-04-14 09:23 | disposition expired | DRG 640 ==
LOC: JER 00:58 → JERBED 03:29 → J4S 05:34
PROVIDERS: ADMIT Internal Medicine; ATTEND Internal Medicine
DX: E87.5 Hyperkalemia (principal); A41.9 Sepsis, unspecified organism; R64 Cachexia; Z68.1 Body mass index [BMI] 19.9 or less, adult; I25.10 Atherosclerotic heart disease of native coronary artery without angina pectoris; D64.9 Anemia, unspecified; I46.9 Cardiac arrest, cause unspecified; E86.0 Dehydration; R41.82 Altered mental status, unspecified
CPT/HCPCS: 36415; 70450-TC; 71045-TC-FY; 80053; 82140; 82550; 82553; 82962; 83605; 84484; 85025; 86850; 86900; 86901; 87040; 87186; 93005; 93010; 99284-25